=== PATIENT | male | born 1955 | race Caucasian/White ===

== ENCOUNTER → 2023-12-16 07:06 | Outpatient (REF) | payer OTHER, SELFPAY | LOC: HWRAD 07:06 | PROVIDERS: ATTENDING PHYSICIAN Surgery; FAMILY PHYSICIAN Internal Medicine | DX: R19.09 Other intra-abdominal and pelvic swelling, mass and lump (principal) | CPT/HCPCS: 72192 ==

== ENCOUNTER 2024-02-19 06:10 | Day surgery (SDC) | payer OTHER, SELFPAY ==
[2024-02-02 14:41] VITALS: BMI 28.4
[2024-02-19] VITALS (7 sets, daily range): BP systolic 115–133; BP diastolic 62–80; BMI 28.3
[2024-02-19] MEDS: NORMOSOL-R/PLASMALYTE-A 1000 IV (06:36)
[2024-02-19] MEDS: TYLENOL 1000 MG PO (06:36)
--- NOTE | 2024-02-19 07:23 | W.SUR.PREOP ---
Pre-Operative Surgical Note
-
I have examined this patient prior to the performance of the scheduled procedure.
The patient's condition is unchanged from the time of the current History and
Physical and the patient is able to undergo the scheduled procedure.
--- NOTE | 2024-02-19 07:23 | HP.FOC2 ---
Focused History & Physical
Chief Complaint
HPI:
Chief Complaint: Recurrent right inguinal hernia
HPI / Indication for Planned Procedure: Recurrent open right inguinal hernia repair with mesh
Relevant Past Medical History: Negative
Relevant Social History: Negative
Relevant Family History: Negative
Relevant Past Surgical History: Positive for (Prior laparoscopic and open right inguinal hernia repairs.)
Review of Systems
Review of Pertinent Systems: All Systems Negative
Medication
See Medication form for detailed medications: Yes
Medication List (including Herbals & OTC):
aspirin 81 mg tablet,delayed release 81 mg PO DAILY 12/21/20
atorvastatin 20 mg tablet 20 mg PO DAILY 12/21/20
multivitamin 1 ea PO DAILY 12/21/20
brimonidine 1 dose ophthalmic (eye) BID glaucoma 02/05/24
Medications Reviewed: Yes
Allergies and Reactions
Patient has Allergies: No
Noted Allergies and Reactions:
Allergy/AdvReac Type Severity Reaction Status Date / Time
No Known Allergies Allergy Verified 02/19/24 06:15
Pertinent Physical Exam
All Other Systems: Negative
Head/Neck: Normal
Diagnosis / Assessment
This is a 68-year-old male with a recurrent right inguinal hernia
Plan / Procedure
Open recurrent right inguinal hernia repair with mesh
Anesthesia/Sedation to be done by Anesthesia Provider: Yes
--- NOTE | 2024-02-19 09:19 | W.IMMPOSTOP ---
Surgical Immed Post Op Note
-
Primary Surgeon: Allen Nesbitt MD
Assisting Surgeon: None
Pre-op Diagnosis: Recurrent right inguinal hernia
Post-op Diagnosis: Same
Procedure Performed: Open right recurrent inguinal hernia repair with mesh
Anesthesia Type: General
Specimen / Cultures: None
Estimated Blood Loss: 3 cc
Complications: None
Operative Findings: Recurrent indirect inguinal hernia containing small bowel plastered to the hernia sac dallas to a sliding hernia. Very thin hernia sac was closed in inverted/return to the abdomen. The floor was reinforced with a 10 x 15 Bard
flat mesh cut to size. Only the genital branch of the genitofemoral nerve was identified and was preserved.
--- NOTE | 2024-02-19 09:22 | OR.RPT ---
Operative Report
Operative Report
Patient Name: Marv Sinclair
: 1955
Date of Operation: 02/19/2024
Preoperative Diagnosis: Recurrent right inguinal hernia
Postoperative Diagnosis: Same
Procedure(s):
Open Inguinal Hernia Repair
Surgeon(s):
Dr. Nesbitt
Human Resources Supervisor(s):
GEOFFREY London
Anesthesia: General
Estimated Blood Loss: [7] cc
Urine Output: None
Drains/Lines/Implants: 3 x 6 inch Bard Flat Mesh cut to size
Specimens: None
Indication for surgery: The patient has a history of recurrent right groin pain and his initial CT scan did not show a right inguinal hernia nor was 1 identified on his first exam. However on a subsequent visit he was noted to have an asymmetry and
a palpable but reducible mass in the right groin concerning for recurrent right inguinal hernia. Following review of therapeutic options they has elected to undergo an open repair
Operative Findings: Recurrent right indirect inguinal hernia containing small bowel plastered to the hernia sac dallas to a sliding hernia. Very thin hernia sac was closed in inverted/return to the abdomen. The floor was reinforced with a 10 x 15 cm
Bard flat mesh cut to size. Only the genital branch of the genitofemoral nerve was identified and was preserved.
Details of the operation:
After induction of anesthesia, the patient was clipped, prepped and draped in the supine position. A team timeout was performed confirming administration of DVT prophylaxis, IV antibiotics and SCDs. The skin was anesthetized with Lidocaine. An
incision was made through the previous skin incision and dissection carried down through the subcutaneous tissue and Willow's fascia. A Small Souleymane wound retractor was used to provide exposure. The external oblique fibers were initially quite
difficult to identify. We were able to identify the cord contents around the pubic tubercle and this was encircled with a Valeri drain. Working retrograde we were then able to identify the external ring and the inferior leaflet of the external
oblique. Using careful sharp dissection we were able to dissect the cord contents off of the inside of the external oblique. The fascia was then opened in a retrograde manner towards the deep ring. We then did our standard dissection, elevating
the external oblique fibers off of the underlying internal oblique/conjoined tendon and freeing up the inferior external oblique flap from the underlying fat of the upper thigh. There was no immediate hernia identified. The floor of the canal, the
direct space, appeared normal. The general branch of the general femoral nerve was identified and preserved in our [place] drain. No cord lipoma was identified however pulling some of the tissue in the internal oblique we were then able to
identify the indirect inguinal hernia sac which contained small bowel. There was a small window where marilee in the hernia sac was made and opened. We confirmed that no injury had occurred to the underlying small bowel. The small bowel appeared
densely adherent to the inner lining of the hernia sac.
The sac was then closed with 3-0 Vicryl running suture and the hernia was inverted and returned back to the abdomen. The ilioinguinal and the iliohypogastric nerves were not identified during our dissection.
The floor of the canal was then reconstructed by placing a 10 x 15 cm BARD flat polypropylene mesh trimmed to size and secured it in place with interrupted 0-PDS sutures medially at the pubic tubercle, inferiorly along the inguinal ligament,
laterally/superiorly in the conjoint tendon. A slit was made in the mesh just wide enough to accommodate the cord this was also reapproximated with the PDS suture. Care was taken not to injure or entrap any nerves. The external oblique fibers were
then closed using a running 2-0 Vicryl suture. Willow's fascia was then closed with interrupted 3-0 Vicryl suture. The skin was closed in layers with interrupted 3-0 vicryl deep dermals followed by a running subcuticular 4-0 Monocryl followed by
dermabond. The patient returned to the Recovery Room in stable condition. Sponge and instrument counts were correct. No specimens sent to Pathology.
I was the attending physician and performed the procedure with assistance from the PA above. The assistance of GEOFFREY London was required due to the complexity of the procedure. During the procedure Naima assisted with retraction, resection, and
closure of the wound. I was present for all portions of the case, excluding wound closure.
Allen Nesbitt MD
== END 2024-02-19 10:40 | disposition home or self-care (01) ==
LOC: SDS 06:10
PROVIDERS: ATTENDING PHYSICIAN Surgery; FAMILY PHYSICIAN Internal Medicine
DX: K40.91 Unilateral inguinal hernia, without obstruction or gangrene, recurrent (principal)
CPT/HCPCS: 49520; 36415; 93005; C1781